=== PATIENT | female | born 1990 | race Two or more races ===

== ENCOUNTER → 2019-11-13 | Outpatient (CLI) | payer SELFPAY ==
--- NOTE | 2019-11-13 14:00 | RADIOLOGY REPORT (SQ) ---
EXAM DESCRIPTION: U/S UB7LAST TRNABD 1GES W/ODOP IMAGES COMPLETED DATE/TIME: 11/13/2019 1:46 pm REASON FOR STUDY: ENCOUNTER FOR SUPRVSN OF NORMAL , FIRST TRIMESTER (Z34.81) Z34.[address] FOR SUPRVSN OF NORMAL , FIRST TRIM COMPARISON: None. TECHNIQUE: Transabdominal static and realtime grayscale images acquired of the pelvis. Additional se lected spectral and color Doppler images recorded. All images stored on PACs. bHCG: Not available. CLINICAL DATES: SWAPNIL: 06/10/2020 EGA: 10 weeks 0 days LIMITATIONS: None. FINDINGS: FETUS: Single Living intrauterine . ULTRASOUND EGA: 11 weeks 6 days ULTRASOUND SWAPNIL: 05/28/2020 EFW: Not applicable less than 20 weeks. CRL: 5.12 cm FHR: 160 beats per minute. SURVEY: No visualized anomalies. AMNIOTIC FLUID: Adequate amount. PLACENTA: Not yet developed due to early gestation. SUBCHORIONIC BLEED: No. SIZE OF BLEED: Not applicable. UTERUS: No masses. No anomalies. CERVICAL LENGTH: 3.6 cm Closed. RIGHT ADNEXA: The right ovary measures 2.8 x 2.7 x 2.3 cm a complex 1.9 x 1.8 x 1.5 cm right ovarian cyst may represent corpus luteum cyst. No adnexal free fluid. LEFT ADNEXA: The left ovary measures 3.2 x 1.7 x 1.7 cm. Normal ovary with normal vascular flow. No adnexal free fluid. No adnexal masses. FREE FLUID: None. OTHER: No other significant finding. IMPRESSION: LIVING INTRAUTERINE . EGA: 11 weeks 6 days RIGHT OVARIAN COMPLEX CYST ABOVE. CONSIDERATIONS FOR THIS FINDING INCLUDES CORPUS LUTEUM CYST. Trimester of : First trimester - 0 to 13 weeks. TECHNICAL DOCUMENTATION: JOB ID: [id number] 2010 [employer]- All Rights Reserved rev-12/08 Reading location - IP/workstation name: [email or web address]
== END ==
LOC: RAD 12:59
PROVIDERS: ATTEND Midwife
DX: O34.81 Maternal care for other abnormalities of pelvic organs, first trimester (principal); N83.11 Corpus luteum cyst of right ovary; Z3A.11 11 weeks gestation of pregnancy
CPT/HCPCS: 76801

== ENCOUNTER → 2020-01-07 | Outpatient (CLI) | payer SELFPAY ==
--- NOTE | 2020-01-07 14:19 | RADIOLOGY REPORT (SQ) ---
EXAM DESCRIPTION: U/S OB 14+ TRNABD 1GES W/O DOP IMAGES COMPLETED DATE/TIME: 01/07/2020 2:01 pm REASON FOR STUDY: Z34.82 ENCOUNTER FOR SUPRVSN OF NORMAL , SECOND TRIMESTER Z34.82 ENCOUNT ER FOR SUPRVSN OF NORMAL , SECOND TRI COMPARISON: None. TECHNIQUE: Static and Dynamic grayscale imaging performed of gravid uterus using transabdominal appr oach. Additional selected color Doppler and spectral images recorded. All stored on PACS. LIMITATIONS: None. FINDINGS: FETUSES SEEN:1 EGA: The 19 weeks, 5 days Calculated using BPD,FL,HC,AC documented on images. No discrepancy with cl inical dates. SWAPNIL: 05/28/2020 EFW: 315 g grams PERCENTILE: Not applicable. Fetus less than or equal to 20 weeks gestation. BOBBY: 15.0 cm PLACENTA: Anterior PRESENTATION: Breech. ANATOMY: HEART RATE: 143 beats per minute. FOUR CHAMBER HEART: Visualized. THREE VESSEL CORD: Yes. CORD INSERTION: Visualized. KIDNEYS AND BLADDER: Visualized. Appear normal. STOMACH: Visualized. Appears normal. SPINE: Normal as visualized. BRAIN AND LATERAL VENTRICLES: Visualized. Appear normal. OTHER: No other significant finding. MATERNAL ADNEXA: Right ovary is visualized and normal in appearance. The left ovary is not visualize d. CERVICAL LENGTH: 3.4 cm Closed. OTHER: No other significant finding. IMPRESSION: LIVING INTRAUTERINE . ESTIMATED GESTATIONAL AGE 19 weeks, 5 days NO VISUALIZED ANOMALIES. Trimester of : Second trimester - 13 weeks 1 day to 27 weeks 6 days. TECHNICAL DOCUMENTATION: JOB ID: [id number] 2010 [employer]- All Rights Reserved Reading location - IP/workstation name: [email or web address]
== END ==
LOC: RAD 13:03
PROVIDERS: ATTEND Nurse Practitioner Family
DX: Z34.82 Encounter for supervision of other normal pregnancy, second trimester (principal)
CPT/HCPCS: 76805

== ENCOUNTER → 2020-03-17 | Outpatient (CLI) | payer SELFPAY ==
--- NOTE | 2020-03-17 13:41 | RADIOLOGY REPORT (SQ) ---
EXAM DESCRIPTION: U/S OB 14+ TRNABD 1GES W/O DOP IMAGES COMPLETED DATE/TIME: 03/17/2020 1:31 pm REASON FOR STUDY: Z34.83 ENCOUNTER FOR SUPRVSN OF NORMAL , THIRD TRIMESTER Z34.83 ENCOUNTE R FOR SUPRVSN OF NORMAL , THIRD TRIM COMPARISON: 01/07/2020. TECHNIQUE: Static and Dynamic grayscale imaging performed of gravid uterus using transabdominal appr oach. Additional selected color Doppler and spectral images recorded. All stored on PACS. LIMITATIONS: None. FINDINGS: FETUSES SEEN:1 EGA: 30 week 3 day. Calculated using BPD,FL,HC,AC documented on images. Clinical dates 29 week 5 day . SWAPNIL: 05/23/2020. EFW: 1,574 grams PERCENTILE: 56%. BOBBY: 18.1 cm. LVP 6.5 cm. PLACENTA: Anterior. GRADE: I PRESENTATION: Cephalic. HEART RATE: 145 beats per minute. OTHER: No other significant finding. MATERNAL ADNEXA: Maternal ovaries not visualized. CERVICAL LENGTH: 3.0 cm. Closed. OTHER: No other significant finding. IMPRESSION: LIVING INTRAUTERINE . ESTIMATED GESTATIONAL AGE 30 WEEK 3 DAY. NO VISUALIZED ANOMALIES. Trimester of : Third trimester - 28 weeks to delivery. TECHNICAL DOCUMENTATION: JOB ID: [id number] 2010 [employer]- All Rights Reserved Reading location - IP/workstation name: [email or web address]
== END ==
LOC: RAD 12:58
PROVIDERS: ATTEND Nurse Practitioner Family
DX: Z34.83 Encounter for supervision of other normal pregnancy, third trimester (principal); Z3A.30 30 weeks gestation of pregnancy
CPT/HCPCS: 76805

== ENCOUNTER 2020-05-31 21:51 | Outpatient (CLI) | payer SELFPAY ==
[2020-05-31 22:18] LABS: APPEARANCE,URINE CLEAR; BILIRUBIN,URINE NEGATIVE (NEGATIVE); COLOR,URINE YELLOW; GLUCOSE, URINE NEGATIVE (NEGATIVE); KETONES,URINE NEGATIVE (NEGATIVE); LEUKOCYTE ESTERASE,URINE NEGATIVE (NEGATIVE); NITRITE,URINE NEGATIVE (NEGATIVE); PROTEIN,URINE NEGATIVE (NEGATIVE); URINE SPECIFIC GRAVITY 1.011; UROBILINOGEN,URINE NEGATIVE mg/dL (<2.0)
--- NOTE | 2020-06-01 00:54 | Non Stress Test Report ---
Non Stress Test Datetime Report Generated by CPN: 06/01/2020 00:54 DEMOGRAPHIC EGA NST: 40.4 INDICATION Indication for Study (NST) Other: labor check MONITORING Monitor Explained: Monitor Explained; Test Explained; Patient Verbalized Understanding Time on Monitor: 06/01/2020 22:14 Time off Monitor: 06/01/2020 23:16 NST Duration: 62 NST INTERVENTIONS NST Interventions: None Physician Notified NST: Dr Frye BABY A: [id number] BABY A Movement : Present Contraction Frequency : 1.5-6 FHR Baseline : 145 Accelerations : 15X15 Decelerations : None Variability : Moderate 6-25bpm NST Review: Meets Criteria for Reactive NST NST Review and Verified By : Gertrude Bellavancterese RN NST Results: Reactive NST REPORT Report Trigger: Send Report
== END 2020-06-01 00:34 | disposition home or self-care (01) ==
LOC: LC 21:51
PROVIDERS: ATTEND Obstetrics & Gynecology Gynecology
DX: O47.1 False labor at or after 37 completed weeks of gestation (principal); O48.0 Post-term pregnancy; Z3A.40 40 weeks gestation of pregnancy
CPT/HCPCS: 59025; 81005

== ENCOUNTER 2020-06-01 13:03 | Inpatient (IN) | payer SELFPAY ==
[2020-06-01] MEDS ORDERED: RINGERS SOLUTION,LACTATED 1,000 ML IV ONE (13:40)
--- NOTE | 2020-06-01 13:50 | RADIOLOGY REPORT (SQ) ---
EXAM DESCRIPTION: U/S OB LIMITED IMAGES COMPLETED DATE/TIME: 06/01/2020 1:33 pm REASON FOR STUDY: BOBBY COMPARISON: 03/17/2020 TECHNIQUE: Limited transabdominal grayscale ultrasound for evaluation of specific requested obstetri avi parameters. LIMITATIONS: None. FINDINGS: CERVICAL LENGTH: Not seen BOBBY: 4.1 cm LVP: 2.4 x 3.9 cm. FHR: 140 beats per minute. PRESENTATION: Cephalic. PLACENTA: Anterior, grade III. ANATOMY: Not assessed OTHER: Gestational age 40 weeks 4 days IMPRESSION: LIMITED OBSTETRICAL ULTRASOUND WITH MEASURED PARAMETERS DELINEATED ABOVE. Trimester of : Third trimester - 28 weeks to delivery. TECHNICAL DOCUMENTATION: JOB ID: [id number] 2010 [employer]- All Rights Reserved Reading location - IP/workstation name: [email or web address]
[2020-06-01] MEDS ORDERED: OXYTOCIN/0.9 % SODIUM CHLORIDE 30 UNIT/500 ML RTUINJ ONE (13:53)
[2020-06-01] MEDS ORDERED: OXYTOCIN 10 UNIT/ML VIAL ONE (13:53)
[2020-06-01] MEDS ORDERED: MISOPROSTOL 0.2 MG TABLET ONE (13:53)
[2020-06-01] MEDS ORDERED: LIDOCAINE 1% INJ-PF (10 MG/ML) 30 ML SDV ONE (13:53)
[2020-06-01 14:12] LABS: ABSOLUTE BASOPHILS # (AUTO) 0.1 10^3/uL (0.0-0.2); ABSOLUTE EOSINOPHILS # (AUTO) 0.1 10^3/uL (0.0-0.6); ABSOLUTE LYMPHOCYTES (AUTO) 1.9 10^3/uL (0.5-4.7); ABSOLUTE MONOCYTES (AUTO) 0.5 10^3/uL (0.1-1.4); ABSOLUTE NEUT (AUTO) 6.6 10^3/uL (1.7-8.2); BASOPHILS % (AUTO) 0.6 % (0-2); EOSINOPHILS % (AUTO) 1.3 % (0-6); HEMATOCRIT 35.9 % (36.0-47.0); HEMOGLOBIN 12.3 g/dL (12.0-15.5); LYMPHOCYTES % (AUTO) 20.6 % (13-45); MEAN CORPUSCULAR HEMOGLOBIN 29.8 pg (27.0-33.4); MEAN CORPUSCULAR HGB CONC 34.4 g/dL (32.0-36.0); MEAN CORPUSCULAR VOLUME 87 fl (80-97); MONOCYTES % (AUTO) 5.8 % (3-13); PLATELET COUNT 178 10^3/uL (150-450); RED BLOOD COUNT 4.15 10^6/uL (3.72-5.28); RED CELL DISTRIBUTION WIDTH 13.6 % (11.5-14.0); SEGMENTED NEUTROPHILS % (AUTO) 71.7 % (42-78); TOTAL CELLS COUNTED % (AUTO) 100 %; WHITE BLOOD COUNT 9.3 10^3/uL (4.0-10.5)
--- NOTE | 2020-06-01 14:36 | Admission Physical ---
Datetime Report Generated by CPN: 06/01/2020 14:36 CURRENT ADMISSION Hx Assessment: The History has been Reviewed and is Current Chief Complaint Other: post dates, here for BOBBY and NST Admit Impression : Postterm, Intrauterine ; No Active Labor Admit Plan: Admit to Unit; Initiate Labor Induction Protocol Admit Plan- Other: [place] ALLERGIES Medication Allergies: No Medication Allergies: No Known Allergies (03/10/2016) Latex: No Latex Allergies OBSTETRICAL HISTORY EDC: 05/28/2020 00:00 : 4 Para: 3 Term: 3 : 0 SAB: 0 IAB: 0 Ectopic: 0 Livin Cesareans: 0 VBACs: 0 Multiple Births: 0 Gestational Diabetes: No Rh Sensitization: No Incompetent Cervix: No MIKO: No Infertility: No ART Treatment: No Uterine Anomaly: No IUGR: No Hx Previous C/S: No Macrosomia: No Hx Loss/Stillborn: No PIH: No Hx : No Placenta Previa/Abruption: No Depression/PP Depression: No PTL/PROM: No Post Hemorrhage: No Current Procedures: Ultrasound Obstetrical History Comments: G1- 2007 G2- 2009 G3- 2015 G4-Current SEE RECORDS Alcohol: No Marijuana : No Cocaine: No Other Illicit Drugs: No Cigarettes: Never Smoker. [id number] Advised to Stop: No MEDICAL HISTORY Diabetes: No Blood Transfusion: No Pulmonary Disease (Asthma, TB): No Breast Disease: No Hypertension: No Breaker Up Surgery: Yes Heart Disease: No Hosp/Surgery: Yes Autoimmune Disorder: No Anesthetic Complications: No Kidney Disease: No Abnormal Pap Smear: No Neuro/Epilepsy: No Psychiatric Disorders: No Other Medical Diseases: No Hepatitis/Liver Disease: No Significant Family History: No Varicosities/Phlebitis: No Trauma/Violence : No Thyroid Dysfunction: No Medical History Comments: Appendectomy; Childbirth INFECTIOUS HISTORY Gonorrhea: No Genital Herpes: No Chlamydia: No Tuberculosis: No Syphilis: No Hepatitis: No HIV/AIDS Exposure: No Rash or Viral Illness: No HPV: No PHYSICAL EXAM General: Normal HEENT: Deferred Neurologic: Normal Thyroid: Normal Heart: Normal Lungs: Normal Breast: Deferred Back: Normal Abdomen: Normal Genitourinary Exam: Normal Extremities: Normal DTRs: Normal Pelvic Type: Adequate Physical Exam Comments: GBS Neg BOBBY 4.1 Placenta with calcifications , does not speak Tongan Vital Signs: Reviewed FETUS A Monitoring: External US Admit Comment: [facility] pt who was sent over for NST/BOBBY for post dates, was seen in LD last night for uc's and d/c home. BOBBY = 4.1, calcified placenta, discussed with doughnut batter mixer that we need to Induce labor for [place], pt agrees and consent signed. Irreg uc's, Cat 1 trip Admit: Pitocin, anticipate PLANS FOR LABOR AND DELIVERY Labor and Delivery: None Pain Management: Epidural Feeding Preference: Both Benefit of Breast Feed Discussed: Yes Circumcision: N/A INFORMED CONSENT Assignment: Gabyb Azul MD Signature: with User ID: [email or web address] : with User ID: [email or web address]
[2020-06-01 14:50] LABS: APPEARANCE,URINE CLEAR; BILIRUBIN,URINE NEGATIVE (NEGATIVE); COLOR,URINE YELLOW; GLUCOSE, URINE NEGATIVE (NEGATIVE); KETONES,URINE NEGATIVE (NEGATIVE); LEUKOCYTE ESTERASE,URINE NEGATIVE (NEGATIVE); NITRITE,URINE NEGATIVE (NEGATIVE); PROTEIN,URINE NEGATIVE (NEGATIVE); URINE SPECIFIC GRAVITY 1.012; UROBILINOGEN,URINE NEGATIVE mg/dL (<2.0)
[2020-06-01] MEDS ORDERED: OXYTOCIN/0.9 % SODIUM CHLORIDE 30 UNIT/500 ML RTUINJ IV PRN ×2 (14:53→22:49)
[2020-06-01 15:31] LABS: URINE AMPHETAMINES SCREEN NEGATIVE; URINE BARBITURATES SCREEN NEGATIVE; URINE BENZODIAZEPINES SCREEN NEGATIVE; URINE COCAINE SCREEN NEGATIVE; URINE MARIJUANA (THC) SCREEN NEGATIVE; URINE METHADONE SCREEN NEGATIVE; URINE PHENCYCLIDINE SCREEN NEGATIVE
[2020-06-01] MEDS ORDERED: EPHEDRINE SULFATE INJ 50 MG/1 ML AMPULE ONE (17:46)
[2020-06-01] MEDS ORDERED: FENTANYL/BUPIVACAINE/NS/PF 300 MCG/150 ML RTUINJ EPI ONE (17:47)
[2020-06-01] MEDS ORDERED: ROPIVACAINE HCL 0.2% INJ/PF (2 MG/ML) 20 ML SDV ONE (17:47)
[2020-06-01] MEDS: RINGERS SOLUTION,LACTATED 1,000 ML IV PRN ×2 (17:56→18:56)
[2020-06-01] MEDS ORDERED: PROMETHAZINE HCL 25 MG TABLET PO PRN (22:49)
[2020-06-01] MEDS ORDERED: GLYCERIN/WITCH HAZEL LEAF 1 EACH MED..WIPE TP PRN (22:49)
[2020-06-01] MEDS ORDERED: DIPHENHYDRAMINE HCL 25 MG CAPSULE PO PRN (22:49)
[2020-06-01] MEDS ORDERED: PROMETHAZINE HCL 25 MG SUPP.RECT PR PRN (22:49)
[2020-06-01] MEDS ORDERED: ACETAMINOPHEN 650 MG SUPP.RECT PR PRN (22:49)
[2020-06-01] MEDS ORDERED: PSEUDOEPHEDRINE HCL 30 MG TABLET PO PRN (22:49)
[2020-06-01] MEDS ORDERED: BENZOCAINE/MENTHOL AEROSOL SPRAY 56 ML TOP PRN (22:49)
[2020-06-01] MEDS ORDERED: DIBUCAINE 1% OINTMENT 28 GM TP PRN (22:49)
[2020-06-01] MEDS ORDERED: ZOLPIDEM TARTRATE 5 MG TABLET PO PRN (22:49)
[2020-06-01] MEDS ORDERED: MAGNESIUM HYDROXIDE SUSP 30 ML UDCUP PO PRN (22:49)
[2020-06-01] MEDS ORDERED: PROMETHAZINE HCL INJ 25 MG/1 ML VIAL IV PRN (22:49)
[2020-06-01] MEDS ORDERED: MEASLES,MUMPS&RUBELLA VACC/PF 0.5 ML VIAL SUBCUT PRN (22:49)
[2020-06-01] MEDS ORDERED: NA PHOS,M-B/NA PHOS,DI-BA (ADULT) 133 ML ENEMA PR PRN (22:49)
[2020-06-01] MEDS ORDERED: DIPH/PERTUSS(ACELL)/TETANUS VAC/PF 0.5 ML SYR (>=10YO) IM PRN (22:49)
[2020-06-01] MEDS ORDERED: ACETAMINOPHEN WITH CODEINE #3 TABLET PO PRN (22:49)
--- NOTE | 2020-06-01 23:02 | Warning Signs in Babies ---
VOD Warning Signs Datetime Report Generated by [facility]: 06/01/2020 23:02 VOD#608 -Warning Signs in Babies: Needs to be viewed. (05/31/2020 22:25:Malcom Edwards RN)
--- NOTE | 2020-06-01 23:28 | Birth Certificate Data ---
Cert Data Datetime Report Generated by CPN: 06/01/2020 23:27 CERTIFICATE DATA Delivery Provider: Gabby Azul MD (05/31/2020 22:25:Malcom Edwards RN) 47a. Care: Yes (05/31/2020 22:25:Malcom Edwards RN) 47b. Date of First Visit: 11/08/2019 00:00 (05/31/2020 22:25:JUAREZ Call) 47c. Date of Last Visit: 06/01/2020 00:00 (05/31/2020 22:25:Morenita Downing RN) 47d. Number of Visits: 12 (05/31/2020 22:25:Morenita Downing RN) 48a. Number of Prev Live Births: 3 (05/31/2020 22:25:Malcom Edwards RN) 48b. Now Livin (05/31/2020 22:25:Malcom Edwards RN) 48c. Live Births Now : 0 (05/31/2020 22:25:QS system process) 48d. Date of Last Live : 03/10/2016 00:00 (05/31/2020 22:25:Malcom Edwards RN) 48e. Losses: 0 (05/31/2020 22:25:Malcom Edwards RN) RISK FACTORS IN THIS 49a. Diabetes: No (05/31/2020 22:25:Malcom Edwards RN) 49b. Hypertension: No (05/31/2020 22:25:Malcom Edwards RN) 49c. Previous Births: 0 (05/31/2020 22:25:Malcom Edwards RN) 49d. Stillborns: No (05/31/2020 22:25:Malcom Edwards RN) 49d. IUGR: No (05/31/2020 22:25:Malcom Edwards RN) 49e. Infertility Treatment: No (05/31/2020 22:25:Malcom Edwards RN) 49f. Previous Cesareans: 0 (05/31/2020 22:25:Malcom Edwards RN) Mother's Height 50b. Height Inches: 61 (06/01/2020 13:14:QS system process) Mother's Weight 51a. Pre- Weight (lbs): 171 (Annotations: Data stored by [facility] on behalf of user) (05/31/2020 22:25:Bruna Rosales RN) 51b. Weight at Delivery (lbs): 196 (06/01/2020 13:14:QS system process) 52. Dt Last Normal Menses Began: 09/01/2019 00:00 (05/31/2020 22:25:Bruna Rosales RN) Infections Present/Treated 53a. Gonorrhea: No (05/31/2020 22:25:Malcom Edwards RN) Results this Hospital Visit : Negative (05/31/2020 22:25:Malcom Edwards RN) 53b. Syphilis: No (05/31/2020 22:25:Malcom Edwards RN) 53c. Chlamydia: No (05/31/2020 22:25:Malcom Edwards RN) Results this Hospital Visit: Negative (05/31/2020 22:25:Malcom Edwards RN) 53d. Hepatitis B: No (05/31/2020 22:25:Malcom Edwards RN) Results this Hospital Visit: Negative (05/31/2020 22:25:Malcom Edwards RN) 53e. Hepatitis C: Negative (05/31/2020 22:25:Malcom Edwards RN) 53h. Mother Tested for HBsAG: Yes (05/31/2020 22:25:Malcom Edwards RN) 53i. Date Tested: 11/22/2019 00:00 (05/31/2020 22:25:Malcom Edwards RN) 53j. Test Result: Negative (05/31/2020 22:25:Malcom Edwards RN) Obstetric Procedures 54a, b, c. Obstetric Procedures: Ultrasound (05/31/2020 22:25:Malcom Edwards RN) Cigarette Smoking Cigarette Smoking: Never Smoker. [id number] (05/31/2020 22:25:Malcom Edwards RN) 55a. 3 Months Before Preg - Ci (05/31/2020 22:25:Bruna Rosales RN) 55b. 1st Trimester of Preg- Ci (05/31/2020 22:25:Bruna Rosales RN) 55c. 2nd Trimester of Preg- Ci (05/31/2020 22:25:Bruna Rosales RN) 55d. 3rd Trimester of Preg- Ci (05/31/2020 22:25:Bruna Rosales RN) Onset of Labor 56a. PROM >12 Hrs: 1.80 (05/31/2020 22:25:QS system process) 56b. Precipitous Labor <3 Hrs: 7 (05/31/2020 22:25:QS system process) 56c. Prolonged Labor > 20 Hrs: 7 (05/31/2020 22:25:QS system process) 57a. Induction of Labor: Induction (05/31/2020 22:25:Bruna Rosales RN) 57c. Non-Vertex Presentation A: Vertex (05/31/2020 22:25:JUAREZ Carreon) 57d. Steroids - Lung Mat: None (05/31/2020 22:25:Bruna Rosales RN) 57d. Steroids - Lung Mat: Not Applicable (05/31/2020 22:25:Bruna Rosales RN) 57f. Mat [place] or Temp >100.4: 98.9 (05/31/2020 22:25:JAUREZ Carreon) 57g. Moderate/Heavy Meconium: Clear (06/01/2020 20:44:Malcom Edwards RN) 57h. Intolerance of Labor: N/A (05/31/2020 22:25:Malcom Edwards RN) : N/A (05/31/2020 22:25:Malcom Edwards RN) 57i. Epidural/Spinal Anesthesia: Epidural (05/31/2020 22:25:Bruna Rosales RN) Method of Delivery 58a. Forceps - Unsuccessful A: N/A (05/31/2020 22:25:JUAREZ Carreon) 58b. Vacuum - Unsuccessful A: N/A (05/31/2020 22:25:JUAREZ Carreon) 58c. Presentation at 58c. Presentation at - A : Vertex (05/31/2020 22:25:Antonellaandie Molinance, [facility]) 58c. Presentation at - A : N/A (05/31/2020 22:25:Malcom Edwards RN) 58c. Presentation at - A : Cephalic (05/31/2020 22:25:Antonella Molinance, [facility]) Final Route and Method of Del 58d. Baby A Route/Delivery: Vaginal (06/01/2020 22:32:Malcom Edwards RN) 58e. Trial of Labor Attempted: No (05/31/2020 22:25:Bruna Rosales RN) 58e. Trial of Labor Attempted A: N/A (05/31/2020 22:25:Bruna Rosales RN) 58e. Trial of Labor Attempted B: N/A (05/31/2020 22:25:Bruna Rosales RN) Maternal Morbidity 59b. 3rd or 4th Degree Lacs: None (05/31/2020 22:25:Antonella Bellavance, RNC) Birthweight Baby A: 3630 (05/31/2020 22:25:Omaira Duffy, RN) 60a. Pounds : 8 (05/31/2020 22:25:QS system process) 60b. Ounces: 0 (05/31/2020 22:25:QS system process) 61. GA at Delivery Baby A: 40.4 (05/31/2020 22:25:Antonella Bellavance, RNC) : Full Term- 39- 40.6 Weeks (05/31/2020 22:25:QS system process) 62a. 5 Minute Baby A: 9 (05/31/2020 22:25:QS system process)
--- NOTE | 2020-06-01 23:28 | Delivery Summary ---
Del Sum A-C Datetime Report Generated by CPN: 06/01/2020 23:27 DELIVERY PERSONNEL DELIVERY PERSONNEL: [id number] Delivery Doctor:: Gabby Azul MD Labor and Delivery Nurse:: Malcom Edwards RN Labor and Delivery Nurse:: JUAREZ Carreon Nursery Nurse:: June Duffy RN Nursery Nurse:: Britni Huang RN Hearing Aid Technician/LEAD SCIENTIST: Erica Green, ST MATERNAL INFORMATION Delivery Anesthesia: Epidural Medications After Delivery: Pitocin Bolus-Please Comment; Pitocin 30 Units in 500ml NS/D5W Estimated Blood Loss (ml): 100 Delivery QBL: 150 Maternal Complications: None; Other Complication Details: oligo LABOR SUMMARY EDC: 05/28/2020 00:00 No. Babies in Womb: 1 Attempted: No Labor Anesthesia: Epidural LABOR INFORMATION Reason for Induction: Post Dates; Oligohydramnios Onset of Labor: 06/01/2020 15:04 Complete Dilatation: 06/01/2020 22:25 Oxytocin: Induction Group B Beta Strep: Negative Steroids Given: None Reason Steroids Not Administered: Not Applicable MEMBRANES Membranes Rupture Method: Artificial Rupture of Membranes: 06/01/2020 20:44 Length of Rupture (hr): 1.80 Amniotic Fluid Color: Clear Amniotic Fluid Amount: Small STAGES OF LABOR Stage 1 hr: 7 Stage 1 min: 21 Stage 2 hr: 0 Stage 2 min: 7 Stage 3 hr: 0 Stage 3 min: 2 Total Time in Labor hr: 7 Total Time in Labor min: 30 VAGINAL DELIVERY Episiotomy: None Laceration #1: None Laceration Extension #1: N/A Laceration Repair: Not Applicable Sponge Count Correct: N/A Sharps Count Correct: N/A CSECTION DELIVERY Primary Indication: N/A Secondary Indication: N/A CSection Urgency: N/A CSection Incidence: N/A Labor: N/A Elective: N/A CSection Incision: N/A BABY A INFORMATION Delivery Date/Time: 06/01/2020 22:32 Method of Delivery: Vaginal Nurse Controlled Delivery: No Born in Route : No : N/A Forceps: N/A Vacuum Extraction: N/A Shoulder Dystocia : No PRESENTATION/POSITION BABY A Presentation: Cephalic Cephalic Presentation: Vertex Vertex Position: Left Occipital Anterior Breech Presentation: N/A PLACENTA INFORMATION BABY A Placenta Delivery Time : 06/01/2020 22:34 Placenta Method of Delivery: Spontaneous Placenta Status: Delivered SCORES BABY A Heart Rate 1 min: >100 bpm Resp Effort 1 min: Good Cry Reflex Irritability 1 min: Cough or Sneeze or Pulls Away Muscle Tone 1 min: Active Motion Color 1 min: Blue/Pale Resuscitation Effort 1 min: Tactile Stimulation SCORE 1 MIN: 8 Heart Rate 5 min: >100 bpm Resp Effort 5 min: Good Cry Reflex Irritability 5 min: Cough or Sneeze or Pulls Away Muscle Tone 5 min: Active Motion Color 5 min: Body [place], Extremities Blue Resuscitation Effort 5 min: N/A SCORE 5 MIN: 9 INFORMATION BABY A Gestational Age at Delivery: 40.4 Gestational Status: Full Term- 39- 40.6 Weeks Infant Outcome : Liveborn Infant Condition : Stable Infant Sex: Female IDENTIFICATION BABY A Verification Date/Time: 06/01/2020 23:02 ID Band Number: [id number] Mother's Name Verified: Yes Infant RN Verifying Infant: D. Jono RN/ RBrock Grace RN WEIGHT/LENGTH BABY A Birthweight (gm): 3630 Infant Weight (lb): 8 Infant Weight (oz): 0 Length (in): 20.00 Length (cm): 50.80 CORD INFORMATION BABY A No. Cord Vessels: 3 Nuchal Cord : N/A Cord Blood Taken: Yes-For Storage (Mom's Blood type +) Infant Suction: Mouth; Nose ASSESSMENT BABY A Infant Complications: Multiple Variable Decels Physical Findings at Delivery: Other Physical Findings- Other: see nursery nurse assessment Infant Respirations: Appears Normal Skin to Skin: Yes Dam Tender Assistant/ALS Called : Yes Infant Care By: Victor M Duffy RN Transferred To: Remains with Mother BABY B INFORMATION : N/A SIGNATURES Signature: with User ID: [email or web address]
[2020-06-02] MEDS: FAMOTIDINE 20 MG TABLET PO SCH ×3 (01:23→22:13)
[2020-06-02] MEDS: ACETAMINOPHEN WITH CODEINE #3 TABLET PO PRN ×2 (01:24→15:52)
[2020-06-02] MEDS: IBUPROFEN 800 MG TABLET PO SCH ×3 (06:33→22:11)
[2020-06-02 06:59] LABS: HEMATOCRIT 35.2 % (36.0-47.0); MEAN CORPUSCULAR HEMOGLOBIN 29.7 pg (27.0-33.4); MEAN CORPUSCULAR HGB CONC 34.2 g/dL (32.0-36.0); MEAN CORPUSCULAR VOLUME 87 fl (80-97); PLATELET COUNT 185 10^3/uL (150-450); RED BLOOD COUNT 4.06 10^6/uL (3.72-5.28); RED CELL DISTRIBUTION WIDTH 13.7 % (11.5-14.0); WHITE BLOOD COUNT 13.7 10^3/uL (4.0-10.5)
--- NOTE | 2020-06-02 10:16 | PDOC PROGRESS REPORT ---
Subjective-OB Progress Note for:: 06/02/20 - PP Day #1, pt doing well, UOB, voiding, breast and bottlefeeding. A+, Rubella immune. s/p IOL for Oligohydramnios Physical Exam (OB) Vital Signs: Temp Pulse Resp BP Pulse Ox 98.3 F 59 L 16 96/60 L 100 06/02/20 07:14 06/02/20 07:14 06/02/20 07:14 06/02/20 07:14 06/02/20 07:14 Intake & Output 06/01/20 06/02/20 06/03/20 06:59 06:59 06:59 Intake Total 125 Balance 125 Weight 89.1 kg - General General Appearance: Appears well, Alert In distress: None - PIH/Pre-Eclampsia Headache: Absent Epigastric Pain: No Visual Changes: No - Maternal Morbidity 59. Maternal Morbidity (serious complications experinced by the mother associated with labor and delivery: None of the above - Lochia Lochia Amount: Scant < 10 ml Lochia Color: Rubra/Red - Abdomen Description: Soft Fundal Description: Firm, Midline Fundal Height: u/u - u/2 - Respiratory Respiratory Status: No respiratory distress - Abdominal Distension: No distension Tenderness: Nontender - Genitourinary Genitourinary Note: voiding - Extremities Upper extremity: Normal inspection Lower extremities: Normal inspection - Neurological Cognition: Normal Orientation: AAOx4 - Psychological Associated symptoms: Normal affect, Normal mood - Skin Skin Temperature: Warm Skin Moisture: Dry Objective-Diagnostic Laboratory: 06/02/20 06:48 06/01/20 06/01/20 06/01/20 14:01 14:01 14:10 WBC 9.3 RBC 4.15 Hgb 12.3 Hct 35.9 L MCV 87 MCH 29.8 MCHC 34.4 RDW 13.6 Plt Count 178 Seg Neutrophils % 71.7 Urine Color YELLOW Urine Appearance CLEAR Urine pH 7.0 Ur Specific [place] 1.012 Urine Protein NEGATIVE Urine Glucose (UA) NEGATIVE Urine Ketones NEGATIVE Urine Blood NEGATIVE Urine Nitrite NEGATIVE Ur Leukocyte Esterase NEGATIVE Blood Type A POSITIVE Antibody Screen NEGATIVE 06/02/20 06:48 WBC 13.7 H RBC 4.06 Hgb 12.0 Hct 35.2 L MCV 87 MCH 29.7 MCHC 34.2 RDW 13.7 Plt Count 185 Seg Neutrophils % Urine Color Urine Appearance Urine pH Ur Specific [place] Urine Protein Urine Glucose (UA) Urine Ketones Urine Blood Urine Nitrite Ur Leukocyte Esterase Blood Type Antibody Screen Assessment and Plan(PN) - Assessment and Plan (1) Oligohydramnios in pagan in third trimester Is this a current diagnosis for this admission?: Yes (2) Abnormal AFP screen Is this a current diagnosis for this admission?: Yes (3) Acute blood loss anemia Is this a current diagnosis for this admission?: Yes (4) Hemorrhage Is this a current diagnosis for this admission?: Yes (5) Qualifiers: Weeks of gestation: 39 weeks Qualified Code(s): Z3A.39 - 39 weeks gestation of Is this a current diagnosis for this admission?: Yes (6) Vaginal delivery Is this a current diagnosis for this admission?: Yes Plan:: Routine PP orders, ambulation encouraged - Time Spent with Patient Time with patient: Less than 15 minutes Medications reviewed and adjusted accordingly: Yes - Disposition Anticipated Discharge Disposition: Home, Self Care Anticipated Discharge Timeframe: within 24 hours
[2020-06-02] MEDS: FERROUS SULFATE 325 MG TABLET PO SCH ×2 (10:30→17:48)
[2020-06-02] MEDS: SENNOSIDES/DOCUSATE 8.6-50 MG 1 EACH TABLET PO SCH (10:30)
[2020-06-02] MEDS: PRENATAL VITAMIN W DHA CAPSULE PO SCH (10:30)
[2020-06-02] MEDS: DOCUSATE SODIUM 100 MG CAPSULE PO SCH ×2 (10:30→17:48)
[2020-06-03] MEDS: IBUPROFEN 800 MG TABLET PO SCH ×2 (06:15→15:04)
[2020-06-03] MEDS: SENNOSIDES/DOCUSATE 8.6-50 MG 1 EACH TABLET PO SCH (10:32)
[2020-06-03] MEDS: FAMOTIDINE 20 MG TABLET PO SCH (10:32)
[2020-06-03] MEDS: PRENATAL VITAMIN W DHA CAPSULE PO SCH (10:32)
[2020-06-03] MEDS: FERROUS SULFATE 325 MG TABLET PO SCH (10:32)
[2020-06-03] MEDS: DOCUSATE SODIUM 100 MG CAPSULE PO SCH (10:38)
--- NOTE | 2020-06-03 14:14 | PDOC DISCHARGE SUMMARY ---
Impression - Admit/DC Date/PCP Admission Date/Primary Care Provider: 06/01/20 13:53 Discharge Date: 06/03/20 - Discharge Diagnosis (1) Oligohydramnios in pagan in third trimester Is this a current diagnosis for this admission?: Yes (2) Acute blood loss anemia Is this a current diagnosis for this admission?: Yes (3) Vaginal delivery Is this a current diagnosis for this admission?: Yes (4) Abnormal AFP screen Is this a current diagnosis for this admission?: Yes (5) Is this a current diagnosis for this admission?: Yes - Assessment Summary: 30yo G4 now P4 s/p ppd 2 stable and ready for discharge, understands warning s/s and when to rtc/[facility]. - Additional Information Resuscitation Status: Full Code Discharge Diet: As Tolerated, Regular Discharge Activity: Activity As Tolerated, Balance Activity w/Rest, Pelvic Rest, No tub bath, Walk Frequently Prescriptions: Ibuprofen [Motrin 800 mg Tablet] 800 mg PO Q8HP PRN #20 tablet PRN Reason: Home Medications: Pnv95/Iron Fum/Folic Acid [ Caplet] 1 each PO DAILY 03/07/16 Ibuprofen [Motrin 800 mg Tablet] 800 mg PO Q8HP PRN #20 tablet 06/03/20 Hospital Course 59. Maternal Morbidity (serious complications experinced by the mother associated with labor and delivery: None of the above Results Laboratory Results: WBC 13.7 10^3/uL (4.0-10.5) H 06/02/20 06:48 RBC 4.06 10^6/uL (3.72-5.28) 06/02/20 06:48 Hgb 12.0 g/dL (12.0-15.5) 06/02/20 06:48 Hct 35.2 % (36.0-47.0) L 06/02/20 06:48 MCV 87 fl (80-97) 06/02/20 06:48 MCH 29.7 pg (27.0-33.4) 06/02/20 06:48 MCHC 34.2 g/dL (32.0-36.0) 06/02/20 06:48 RDW 13.7 % (11.5-14.0) 06/02/20 06:48 Plt Count 185 10^3/uL (150-450) 06/02/20 06:48 Lymph % (Auto) 20.6 % (13-45) 06/01/20 14:01 Drew % (Auto) 5.8 % (3-13) 06/01/20 14:01 Eos % (Auto) 1.3 % (0-6) 06/01/20 14:01 Baso % (Auto) 0.6 % (0-2) 06/01/20 14:01 Absolute Neuts (auto) 6.6 10^3/uL (1.7-8.2) 06/01/20 14:01 Absolute Lymphs (auto) 1.9 10^3/uL (0.5-4.7) 06/01/20 14:01 Absolute Monos (auto) 0.5 10^3/uL (0.1-1.4) 06/01/20 14:01 Absolute Eos (auto) 0.1 10^3/uL (0.0-0.6) 06/01/20 14:01 Absolute Basos (auto) 0.1 10^3/uL (0.0-0.2) 06/01/20 14:01 Seg Neutrophils % 71.7 % (42-78) 06/01/20 14:01 Urine Color YELLOW 06/01/20 14:10 Urine Appearance CLEAR 06/01/20 14:10 Urine pH 7.0 (5.0-9.0) 06/01/20 14:10 Ur Specific [place] 1.012 06/01/20 14:10 Urine Protein NEGATIVE mg/dL (NEGATIVE) 06/01/20 14:10 Urine Glucose (UA) NEGATIVE mg/dL (NEGATIVE) 06/01/20 14:10 Urine Ketones NEGATIVE mg/dL (NEGATIVE) 06/01/20 14:10 Urine Blood NEGATIVE (NEGATIVE) 06/01/20 14:10 Urine Nitrite NEGATIVE (NEGATIVE) 06/01/20 14:10 Urine Bilirubin NEGATIVE (NEGATIVE) 06/01/20 14:10 Urine Urobilinogen NEGATIVE mg/dL (<2.0) 06/01/20 14:10 Ur Leukocyte Esterase NEGATIVE (NEGATIVE) 06/01/20 14:10 Urine Ascorbic Acid NEGATIVE (NEGATIVE) 06/01/20 14:10 Urine Opiates Screen NEGATIVE 06/01/20 14:10 Urine Methadone Screen NEGATIVE 06/01/20 14:10 Ur Barbiturates Screen NEGATIVE 06/01/20 14:10 Ur Phencyclidine Scrn NEGATIVE 06/01/20 14:10 Ur Amphetamines Screen NEGATIVE 06/01/20 14:10 U Benzodiazepines Scrn NEGATIVE 06/01/20 14:10 Urine Cocaine Screen NEGATIVE 06/01/20 14:10 U Marijuana (THC) Screen NEGATIVE 06/01/20 14:10 RPR NONREACTIVE (NONREACTIVE) 06/01/20 14:01 Blood Type A POSITIVE 06/01/20 14:01 Antibody Screen NEGATIVE 06/01/20 14:01 Impressions: Obstetrics Ultrasound 06/01/20 00:00 IMPRESSION: LIMITED OBSTETRICAL ULTRASOUND WITH MEASURED PARAMETERS DELINEATED ABOVE. Trimester of : Third trimester - 28 weeks to delivery.
[2020-06-03 14:33] VITALS: BP 107/63
== END 2020-06-03 15:26 | disposition home or self-care (01) | DRG 807 ==
LOC: LC 13:03 → LR 13:53 → 2S 06-02 00:56
PROVIDERS: ADMIT Obstetrics & Gynecology; ATTEND Obstetrics & Gynecology
PROC: 10E0XZZ Delivery of Products of Conception, External Approach (ICD-10-PCS; principal; 2020-06-01)
PROC: 3E0234Z Introduction of Serum, Toxoid and Vaccine into Muscle, Percutaneous Approach (ICD-10-PCS; 2020-06-03)
DX: O41.03X0 Oligohydramnios, third trimester, not applicable or unspecified (principal); Z37.0 Single live birth; O48.0 Post-term pregnancy; Z3A.40 40 weeks gestation of pregnancy; O76 Abnormality in fetal heart rate and rhythm complicating labor and delivery; Z23 Encounter for immunization
CPT/HCPCS: 1967; 36415; 76815; 80307; 81005; 85025; 85027; 86592; 86850; 86900; 86901; 90715; 94760; J2590; J2795; J3010; J3490